=== PATIENT | male | born 1990 | race American Indian/Alaskan Native ===

== ENCOUNTER 2021-07-16 12:47 | Emergency (ER) | payer OTHER ==
--- NOTE | 2021-07-16 14:00 | Event Note ---
ED Screening Note ED Screening Note: testicular pain abscess noted on exam This initial assessment/diagnostic orders/clinical plan/treatment(s) is/are subject to change based on patients health status, clinical progression and re- assessment by fellow clinical providers in the ED. Further treatment and workup at subsequent clinical providers discretion. Patient/guardian urged not to elope from the ED as their condition may be serious if not clinically assessed and managed. Initial orders include: us labs ua
[2021-07-16 15:27] LABS: Hematocrit 44.3 % (35.5-45.6); Hemoglobin 14.9 gm/dl (11.8-15.2); Mean Corpuscular HGB Conc 34 % (32-34); Mean Corpuscular Volume 94 fl (84-94); Platelet Count 249 K/mm3 (140-440); Red Blood Count 4.74 M/mm3 (3.65-5.03); Red Cell Distribution Width 12.4 % (13.2-15.2)
[2021-07-16 15:44] LABS: BUN/Creatinine Ratio 9; Blood Urea Nitrogen 7 mg/dL (9-20); Calcium 9.4 mg/dL (8.4-10.2); Hemolysis Index 7
[2021-07-16] MEDS ORDERED: MORPHINE 4 MG/1 ML INJ IV ONE (17:25)
[2021-07-16] MEDS ORDERED: ONDANSETRON 4 MG/2 ML INJ IV ONE (17:25)
--- NOTE | 2021-07-16 18:32 | Emergency Department Report ---
<BOY ORDOÑEZ - Last Filed: 07/16/21 19:47> ED Male HPI - General Chief complaint: Urogenital-Male Stated complaint: PAIN IN TESTICLES LUMP Time Seen by Provider: 07/16/21 13:38 - Related Data Previous Rx's Medication Instructions Recorded Last Taken Type HYDROcodone/APAP 5-325 [[place] 1 each PO Q6HR PRN #12 tablet 07/16/21 Unknown Rx 5/325] Sulfamethoxazole/Trimethoprim 1 each PO BID #14 tablet 07/16/21 Unknown Rx [Bactrim DS TAB] Allergies Allergy/AdvReac Type Severity Reaction Status Date / Time No Known Allergies Allergy Verified 07/16/21 14:44 ED Past Medical Hx - Medications Home Medications: Home Medications Medication Instructions Recorded Confirmed Last Taken Type HYDROcodone/APAP 5-325 [[place] 1 each PO Q6HR PRN #12 tablet 07/16/21 Unknown Rx 5/325] Sulfamethoxazole/Trimethoprim 1 each PO BID #14 tablet 07/16/21 Unknown Rx [Bactrim DS TAB] ED Course - Consultations Consultation #1: 07/16/21 19:35 Case discussed with [facility] transfer service. Awaiting urology callback. 07/16/21 19:[address] Cohn with [facility] who states that scrotal abscess can be drained like any other abscess with local anesthesia, I&D, and packing ED Medical Decision Making - Lab Data Result diagrams: 07/16/21 15:14 07/16/21 15:14 ED Disposition Clinical Impression: Scrotal abscess Cellulitis Qualifiers: Site of cellulitis: trunk Site of cellulitis of trunk: groin Qualified Code(s): L03.314 - Cellulitis of groin Disposition: 01 HOME / SELF CARE / HOMELESS Condition: Stable Instructions: Cellulitis, Adult, Incision and Drainage, Care After Additional Instructions: Please take medication as prescribed. Packing needs to be removed in 2 to 3 days, please return to emergency room. Please keep area clean, dry, covered. Follow-up with a urologist. Return to emergency room immediately for any new or worsening symptoms. Prescriptions: Sulfamethoxazole/Trimethoprim [Bactrim DS TAB] 1 each PO BID #14 tablet HYDROcodone/APAP 5-325 [[place] 5/325] 1 each PO Q6HR PRN #12 tablet PRN Reason: Pain , Severe (7-10) Referrals: PRIMARY CARE, [Primary Care Provider] - 3-5 Days KRIS MCKEON MD [Staff Physician] - 3-5 Days Print Language: AUSTRALIAN <DEVON PHELAN - Last Filed: 07/16/21 21:22> ED Male HPI - General Source: patient Mode of arrival: Ambulatory Limitations: No Limitations - History of Present Illness Initial comments: Patient is a 30-year-old male presents emergency room complaints of a lump to the left testicle that began 3 days ago. He states initially it started as a small bump and then became larger and more painful. He denies ever having this in the past. He denies any drainage. He denies any fever, abdominal pain, penile discharge, dysuria, urinary symptoms. Patient denies any past medical history. No allergies to medications. ED Review of Systems ROS: Stated complaint: PAIN IN TESTICLES LUMP Other details as noted in HPI Comment: All other systems reviewed and negative ED Physical Exam - General Limitations: No Limitations General appearance: alert, in no apparent distress - Head Head exam: Present: atraumatic, normocephalic - Eye Eye exam: Present: normal appearance - ENT ENT exam: Present: mucous membranes moist - exam: Present: other (cost manager: ALISA forrest, there is a 3 cm area of induration present to the left posterior testicular region, there is fluctuance present, no opening, no drainage, no perineum involvement, no testicular ttp) - Neurological Exam Neurological exam: Present: alert, oriented X3 - Psychiatric Psychiatric exam: Present: normal affect, normal mood - Skin Skin exam: Present: warm, dry ED Course Vital Signs 07/16/21 07/16/21 13:32 19:16 Temperature 98.5 F 97.7 F Pulse Rate 61 76 Respiratory 18 16 Rate Blood Pressure 137/73 115/66 [Left] O2 Sat by Pulse 100 99 Oximetry - Reevaluation(s) Reevaluation #1: 07/16/21 18:20 Called technical support assistant in regards to delay in patient's ultrasound results, she advised that she will resend to radiologist Reevaluation #2: 07/16/21 19:[address] Ordoñez, ER attending who evaluated patient at bedside and she will take over care of patient Reevaluation #3: 07/16/21 19:[address] Ordoñez who discussed with urologist and advised to do a bedside I&D, ordered lidocaine and I&D set up - I & D Groin Type of Procedure: Complex Site: left posterior testicle Blade Size: 11 I & D Procedure: betadine prep, sterile drapes applied, sterile dressing applied Progress: Verbal consent obtained by patient beverley Laughlin present during procedure Skin prepped with Betadine, sterile drapes applied, 2 cc of 1% lidocaine with epinephrine used as anesthetic, Betadine prep again, 11 blade used to make a 1 cm incision, copious amounts of purulent drainage expressed, there is also tiss ue-like material, irrigated with saline, iodoform packing placed, patient tolerated well, no complications, bleeding controlled, sterile dressing applied ED Medical Decision Making - Lab Data Result diagrams: 07/16/21 15:14 07/16/21 15:14 - Radiology Data Radiology results: report reviewed Ordering Physician: MINDI ZAPATA Date of Service: 07/16/21 Procedure(s): US testicular doppler comp Accession Number(s): [id number] cc: MINDI ZAPATA ULTRASOUND SCROTUM INDICATION / CLINICAL INFORMATION: testicular absc and pain. COMPARISON: None available. FINDINGS -- RIGHT TESTIS: Size = 4.7 x 2 0.0, 3.2 cm. - Appearance: No significant abnormality. - Cyst or Mass: None. - Color Doppler Flow: No significant abnormality. EPIDIDYMIS: No significant abnormality. HYDROCELE: None. VARICOCELE: Mild varicocele FINDINGS -- LEFT TESTIS: Size = 4.7 x 2.4 x 3.2 cm. - Appearance: No significant abnormality. - Cyst or Mass: None. - Color Doppler Flow: No significant abnormality. EPIDIDYMIS: No significant abnormality. HYDROCELE: None. VARICOCELE: Moderate varicocele ADDITIONAL FINDINGS: In the posterior left scrotum, there is a 2.5 x 1.2 x 1.8 cm hypoechoic structure with extensive surrounding soft tissue inflammation and hyperemia. No internal increased Doppler flow. IMPRESSION: 1. Extensive inflammatory stranding and hyperemia of the left aspect of the scrotum with 2.5 cm hypoechoic structure. Findings are concerning for cellulitis with abscess. 2. Bilateral varicoceles, left greater than right. 3. Otherwise, no acute abnormality. No evidence of acute testicular or epididymal inflammation or testicular torsion. Signer Name: Nellie Rueda MD Signed: 07/16/2021 6:33 PM Workstation Name: [id number] Transcribed By: LYNN Dictated By: NELLIE RUEDA MD Electronically Authenticated By: NELLIE RUEDA MD Signed Date/Time: 07/16/211832 DD/ 28 TD/TT: Critical care attestation.: If time is entered above; I have spent that time in minutes in the direct care of this critically ill patient, excluding procedure time. ED Disposition Is pt being admited?: No Does the pt Need Aspirin: No Time of Disposition: 21:21
--- NOTE | 2021-07-16 18:37 | Ultrasound Report ---
ULTRASOUND SCROTUM INDICATION / CLINICAL INFORMATION: testicular absc and pain. COMPARISON: None available. FINDINGS -- RIGHT TESTIS: Size = 4.7 x 2 0.0, 3.2 cm. - Appearance: No significant abnormality. - Cyst or Mass: None. - Color Doppler Flow: No significant abnormality. EPIDIDYMIS: No significant abnormality. HYDROCELE: None. VARICOCELE: Mild varicocele FINDINGS -- LEFT TESTIS: Size = 4.7 x 2.4 x 3.2 cm. - Appearance: No significant abnormality. - Cyst or Mass: None. - Color Doppler Flow: No significant abnormality. EPIDIDYMIS: No significant abnormality. HYDROCELE: None. VARICOCELE: Moderate varicocele ADDITIONAL FINDINGS: In the posterior left scrotum, there is a 2.5 x 1.2 x 1.8 cm hypoechoic structur e with extensive surrounding soft tissue inflammation and hyperemia. No internal increased Doppler fl ow. IMPRESSION: 1. Extensive inflammatory stranding and hyperemia of the left aspect of the scrotum with 2.5 cm hypoe choic structure. Findings are concerning for cellulitis with abscess. 2. Bilateral varicoceles, left greater than right. 3. Otherwise, no acute abnormality. No evidence of acute testicular or epididymal inflammation or johnathon ticular torsion. Signer Name: Jesús Rueda MD Signed: 07/16/2021 6:33 PM Workstation Name: [id number]
[2021-07-16] MEDS ORDERED: LIDOCAINE (1%) 10 MG/1 ML VIAL 20 ML MDV INFILTRATI ONE (19:48)
[2021-07-16 20:14] LABS: Bilirubin,Urine NEG (Negative); Blood,Urine NEG (Negative); Color,Urine Yellow (Yellow); Protein,Urine <15 mg/dL mg/dL (Negative); WBC,Urine < 1.0 /HPF (0.0-6.0)
[2021-07-16 22:00] VITALS: BP 100/59
== END 2021-07-16 21:59 | disposition home or self-care (01) ==
LOC: EDBD → ED 12:47
DX: N49.2 Inflammatory disorders of scrotum (principal); L03.314 Cellulitis of groin; Z79.899 Other long term (current) drug therapy
CPT/HCPCS: 36415; 54700; 80048; 81001; 85027; 93975; 96374; 96375; 99284; J2270; J2405

== ENCOUNTER 2021-07-19 09:16 | Emergency (ER) | payer OTHER ==
--- NOTE | 2021-07-19 10:05 | Emergency Department Report ---
- General Chief Complaint: Laceration/Recheck/Suture Stated Complaint: follow up Time Seen by Provider: 07/19/21 09:37 Source: patient Mode of arrival: Ambulatory Limitations: No Limitations - History of Present Illness Initial Comments: The patient was evaluated in the emergency department for symptoms described in the history of present illness. He/she was evaluated in the context of the global COVID-19 pandemic, which necessitated consideration that the patient might be at risk for infection with the virus that causes COVID-19. Institutional protocols and algorithms that pertain to the evaluation of patients at risk for COVID-19 are in a state of rapid change based on information released by regulatory bodies including the CDC and federal and state organizations. These policies and algorithms were followed during the patient's care in the emergency department. Please note that these policies, procedures and recommendations changed on a rapid basis. 30-year-old -[place] male presents to the emergency room for wound check for an abscess that was packed 3 days ago. Patient states that the packing had fallen out. He states that the pain has improved a lot. He denies any fever no chills and states he is compliant with his antibiotics. Patient Tetanus UTD: Yes Associated Symptoms: none - Related Data Previous Rx's Medication Instructions Recorded Last Taken Type HYDROcodone/APAP 5-325 [[place] 1 each PO Q6HR PRN #12 tablet 07/16/21 Unknown Rx 5/325] Sulfamethoxazole/Trimethoprim 1 each PO BID #14 tablet 07/16/21 Unknown Rx [Bactrim DS TAB] Allergies Allergy/AdvReac Type Severity Reaction Status Date / Time No Known Allergies Allergy Verified 07/16/21 14:44 ED Review of Systems ROS: Stated complaint: follow up Other details as noted in HPI Comment: All other systems reviewed and negative ED Past Medical Hx - Past Medical History Previous Medical History?: No - Surgical History Past Surgical History?: No - Medications Home Medications: Home Medications Medication Instructions Recorded Confirmed Last Taken Type HYDROcodone/APAP 5-325 [[place] 1 each PO Q6HR PRN #12 tablet 07/16/21 Unknown Rx 5/325] Sulfamethoxazole/Trimethoprim 1 each PO BID #14 tablet 07/16/21 Unknown Rx [Bactrim DS TAB] ED Physical Exam - General Limitations: No Limitations General appearance: alert, in no apparent distress - Head Head exam: Present: atraumatic, normocephalic - Eye Eye exam: Present: normal appearance - ENT ENT exam: Present: mucous membranes moist - Neck Neck exam: Present: normal inspection - Respiratory Respiratory exam: Present: normal lung sounds bilaterally. Absent: respiratory distress - Cardiovascular Cardiovascular Exam: Present: regular rate, normal rhythm. Absent: systolic murmur, diastolic murmur, rubs, gallop - GI/Abdominal GI/Abdominal exam: Present: soft, normal bowel sounds - Rectal Rectal exam: Present: deferred - Extremities Exam Extremities exam: Present: normal inspection - Back Exam Back exam: Present: normal inspection - Neurological Exam Neurological exam: Present: alert, oriented X3 - Psychiatric Psychiatric exam: Present: normal affect, normal mood - Skin Skin exam: Present: warm, dry, intact, normal color, other. Absent: rash ED Course Vital Signs 07/19/21 09:19 Temperature 98.0 F Pulse Rate 81 Respiratory 16 Rate Blood Pressure 133/74 O2 Sat by Pulse 100 Oximetry ED Medical Decision Making - Medical Decision Making 30-year-old -[place] male presents to the emergency room for wound check for an abscess that was packed 3 days ago. Patient states that the packing had fallen out. He states that the pain has improved a lot. He denies any fever no chills and states he is compliant with his antibiotics. Packing had fallen out prior to this provider needing to remove it. The wound looks nice and clean nice borders that are closing. Nonerythematous very mild tenderness to touch. Encourage patient to continue with pain medication and complete antibiotics. Critical care attestation.: If time is entered above; I have spent that time in minutes in the direct care of this critically ill patient, excluding procedure time. ED Disposition Clinical Impression: Scrotal abscess Disposition: 01 HOME / SELF CARE / HOMELESS Is pt being admited?: No Does the pt Need Aspirin: No Condition: Stable Instructions: Skin Abscess, [id number] Additional Instructions: Continue with antibiotics pain medication as needed. Referrals: JUSTIN OLIVEIRA MD [Staff Physician] - 3-5 Days Forms: Work/School Release Form(ED) Time of Disposition: 09:48
[2021-07-19 10:10] VITALS: BP 130/70
== END 2021-07-19 10:12 | disposition home or self-care (01) ==
LOC: ED 09:16
DX: N49.2 Inflammatory disorders of scrotum (principal); Z48.01 Encounter for change or removal of surgical wound dressing
CPT/HCPCS: 99281